=== PATIENT | male | born 1985 | race Caucasian/White ===

== ENCOUNTER → 2023-07-19 | Outpatient (CLI) | payer OTHER | LOC: M RAD 13:21 | PROVIDERS: ATTEND Orthopaedic Surgery | DX: M25.511 Pain in right shoulder (principal) ==

== ENCOUNTER 2023-12-23 11:02 | Emergency (ER) | payer OTHER ==
[~2023-12-23] VITALS: Ht 160 cm; Wt 73.9 kg
[2023-12-23] MEDS ORDERED: OXYC-517 (11:23)
[2023-12-23] MEDS ORDERED: ACET-840 (11:23)
[2023-12-23] MEDS ORDERED: GABA-1171 PO (11:23)
[2023-12-23] MEDS ORDERED: MELO15TA28 PO (11:23)
[2023-12-23 13:08] VITALS: BP 134/90; TEMP 97.5; O2SAT 99
== END 2023-12-23 14:30 | disposition home or self-care (01) ==
LOC: M ED 11:02
DX: R22.31 Localized swelling, mass and lump, right upper limb (principal); T81.31XA Disruption of external operation (surgical) wound, not elsewhere classified, initial encounter; Z88.1 Allergy status to other antibiotic agents; Z79.1 Long term (current) use of non-steroidal anti-inflammatories (NSAID); Z79.899 Other long term (current) drug therapy

== ENCOUNTER 2023-12-26 16:54 | Emergency (ER) | payer OTHER ==
[~2023-12-26] VITALS: Ht 160 cm; Wt 73.6 kg
[~2023-12-26 16:54] MED LIST: ACET-840; GABA-1171 PO; MELO15TA28 PO; OXYC-517
[2023-12-26] MEDS ORDERED: HYDR25OIN TOP (20:19)
[2023-12-26 20:30] VITALS: BP 123/84; TEMP 97.5; O2SAT 99
[2023-12-26] MEDS: ANUSOL HC CREAM 30GM TOP ONE (20:47)
== END 2023-12-26 20:50 | disposition home or self-care (01) ==
LOC: M ED 16:54
DX: L30.9 Dermatitis, unspecified (principal); Z88.1 Allergy status to other antibiotic agents; Z79.1 Long term (current) use of non-steroidal anti-inflammatories (NSAID); Z79.899 Other long term (current) drug therapy

== ENCOUNTER 2023-12-30 12:21 | Emergency (ER) | payer OTHER ==
[~2023-12-30] VITALS: Ht 160 cm; Wt 70.8 kg
[~2023-12-30 12:21] MED LIST changes: +HYDR25OIN TOP
[2023-12-30] MEDS ORDERED: HYDR-3363 (12:49)
[2023-12-30 16:53] VITALS: BP 126/91; TEMP 98.8; O2SAT 98
== END 2023-12-30 17:01 | disposition home or self-care (01) ==
LOC: M ED 12:21
DX: S40.221A Blister (nonthermal) of right shoulder, initial encounter (principal); Y92.9 Unspecified place or not applicable; Y93.9 Activity, unspecified; Y99.9 Unspecified external cause status; Z88.1 Allergy status to other antibiotic agents; Z79.899 Other long term (current) drug therapy